=== PATIENT | female | born 1995 ===

== ENCOUNTER 2018-08-04 12:52 | Emergency (ER) | payer MEDICAID, OTHER ==
[2018-08-04 12:53] VITALS: BMI 34.9
[2018-08-04 12:58] VITALS: RESP 18; O2SAT 98
--- NOTE | 2018-08-04 13:32 | C.PDOC ---
History Of Present Illness 23yo female, history of gastritis, comes to ER with complaints of abdominal pain and diarrhea, which has been worsening over the past 3 weeks. Patient states her symptoms have been present for a "long time" but has worsened over the 3 weeks, prompting ER visit. She states in January 2018, she was visiting [place] and had similar symptoms there, was seen at a facility there and had an endoscopy after which she was diagnosed with gastritis. She was instructed to change her diet and take Nexium which she did with some relief. At present, patient states she has nausea and decreased PO intake as well. She denies any fever, chills, vomiting, black or bloody stools, dysuria, hematuria, and vaginal bleeding or discharge. Patient denies any recent antibiotics use as well. LNMP: 07/15/18 PMD: None GI: None Time Seen by Provider: 08/04/18 13:50 Chief Complaint (Nursing): Abdominal Pain History Per: Patient History/Exam Limitations: no limitations Onset/Duration Of Symptoms: Persistent, Worse Since (3 weeks) Current Symptoms Are (Timing): Still Present Location Of Pain/Discomfort: RLQ, Epigastric, LLQ, Suprapubic Quality Of Discomfort: "Pain" Associated Symptoms: Nausea, Diarrhea, Loss Of Appetite. denies: Fever, Chills , Vomiting Additional History Per: Patient Abnormal Vaginal Bleeding: No Last Menstral Period: 07/15/18 Past Medical History Reviewed: Historical Data, Nursing Documentation, Vital Signs Vital Signs: Last Vital Signs Temp 98.3 F 08/04/18 12:55 Pulse 78 08/04/18 12:55 Resp 18 08/04/18 12:55 BP 119/77 08/04/18 12:55 Pulse Ox 98 08/04/18 17:26 - Medical History PMH: Depression Denies: Diabetes, Hepatitis, HIV, HTN, Seizures, Sexually Transmitted Disease Surgical History: Endoscopy - [facility] Procedures INJECT/INFUSE NEC (10/31/14) Family History: States: No Known Family Hx - Social History Hx Alcohol Use: No Hx Substance Use: No - Immunization History Hx Tetanus Toxoid Vaccination: No Hx Influenza Vaccination: No Hx Pneumococcal Vaccination: No Review Of Systems Except As Marked, All Systems Reviewed And Found Negative. Constitutional: Negative for: Fever, Chills Cardiovascular: Negative for: Chest Pain Respiratory: Negative for: Shortness of Breath Gastrointestinal: Positive for: Nausea, Abdominal Pain, Diarrhea. Negative for : Vomiting, Melena, Hematochezia Genitourinary: Negative for: Dysuria, Frequency, Hematuria, Vaginal Discharge, Vaginal Bleeding Physical Exam - Physical Exam Appears: Non-toxic Skin: Normal Color, Warm Head: Atraumatic, Normacephalic Eye(s): bilateral: Normal Inspection Neck: Normal ROM, Supple Chest: Symmetrical Cardiovascular: Rhythm Regular Respiratory: Normal Breath Sounds Gastrointestinal/Abdominal: Soft, Tenderness (epigastric, suprapubic, bilateral lower quadrants), No Guarding, No Rebound Back: Normal Inspection, No CVA Tenderness Extremity: Normal ROM Neurological/Psych: Oriented x3 ED Course And Treatment - Laboratory Results Result Diagrams: 08/04/18 14:18 08/04/18 14:18 O2 Sat by Pulse Oximetry: 98 (RA) Pulse Ox Interpretation: Normal - CT Scan/US CT Abdomen/Pelvis Other Rad Studies (CT/US): Read By Radiologist, Radiology Report Reviewed CT/US Interpretation: FINDINGS: LOWER THORAX: Minimal thickening of the lateral portion of the right major fissure is noted inferiorly. No pleural pericardial effusion bilaterally. LIVER: Borderline diminished hepatic attenuation throughout the liver may indicate mild hepatic steatosis. No mass or intrahepatic biliary dilatation appreciated. GALLBLADDER AND BILE DUCTS: Gallbladder is largely contracted. No radiodense cholelithiasis in the lumen. PANCREAS: Unremarkable. No gross lesion or ductal dilatation. SPLEEN: Unremarkable. ADRENALS: Unremarkable. No mass. KIDNEYS AND URETERS: There is a 3.5 mm nonobstructing intrarenal calcified at the midpole left kidney with a small cortical infarct in the lateral mid pole left kidney as well. No obstructive uropathy bilaterally. Normal corticomedullary enhancement pattern exclusive of the medial infarct noted above. Ureters appear normal caliber bilaterally. VASCULATURE: Unremarkable. No aortic aneurysm. BOWEL: The stomach is unremarkable. There is no bowel obstruction identified involving small or large bowel loops. Occasional left colonic diverticular seen concentrated the distal left hemicolon without acute changes. APPENDIX: Normal appendix. PERITONEUM: Unremarkable. No free fluid. No free air. LYMPH NODES: Unremarkable. No enlarged lymph nodes. BLADDER: Decompressed urinary bladder. Limited evaluation. REPRODUCTIVE: Intrauterine device in situ at the endometrial cavity of the uterus. BONES: No acute fracture. OTHER FINDINGS: None. IMPRESSION: 1. A solitary 3.5 mm intrarenal calculus is nonobstructive at the left kidney. No hydronephrosis bilaterally or perinephric reaction. No delayed nephrogram bilaterally. Small left renal cortical infarct identified as per above. 2. Borderline hepatic steatosis. 3. Limited left colonic diverticular changes of, nonacute. 4. IUD in situ as per above. 5. Minimal thickening of the inferior margins right major fissure. Nonspecific finding. Follow-up CT may be performed electively. . Medical Decision Making Medical Decision Makin yr old female w/ hx of gastritis p/w abdominal pain, RLQ, LLQ, Suprapubic, epigastric and diarrhea. No vaginal d/c or complaints. No hx of STDS per pt, no rashes. No fever, chills or night sweats. Given RLQ pain will seek CT. ?IBD vs gastroenteritis given timeframe of previous travel. U/L SBO given able to defecate. U/L choley given no RUQ pain, no referred shoulder pain. Possible diverticulitis vs Appendicits given RLQ and LLQ pain warranting CT. 1432: labs reviewed, heme and UA: unremarkable. pending additional labs and imaging. 1607 Labs reviewed, unremarkable- pending CT abd pelvis 1725 On reassessment, patient remains without flank pain. 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 Tolerating clears, likely gastroenteritis. No indications of diverticulitis. Stable for d/c home. Disposition - Disposition Disposition Time: 17:40 Condition: GOOD Forms: [facility] (German) - Clinical Impression Clinical Impression: Gastroenteritis, Kidney infarction - Scribe Statement The provider has reviewed the documentation as recorded by the Abisai Bai Provider Attestation: All medical record entries made by the Abisai were at my direction and personally dictated by me. I have reviewed the chart and agree that the record accurately reflects my personal performance of the history, physical exam, medical decision making, and the department course for this patient. I have also personally directed, reviewed, and agree with the discharge instructions and disposition.
[2018-08-04 13:44] LABS: HCG,QUALITATIVE URINE NEGATIVE (NEGATIVE)
[2018-08-04 13:52] LABS: SQUAMOUS EPITHIAL 7 /hpf (0-5); URINE BILIRUBIN NEGATIVE (NEGATIVE); URINE BLOOD NEGATIVE (NEGATIVE); URINE CLARITY Clear (Clear); URINE COLOR Yellow (YELLOW); URINE GLUCOSE (UA) NORMAL (Normal); URINE LEUKOCYTE ESTERASE NEG Leu/uL (Negative); URINE PROTEIN NEGATIVE (NEGATIVE); URINE UROBILINOGEN NORMAL mg/dL (0.2-1.0)
[2018-08-04] MEDS ORDERED: Sodium Chloride 0.9% 1,000 ML IV ONE (13:56)
[2018-08-04 14:23] LABS: BASO # 0.1 K/uL (0.0-0.2); BASO % 0.7 % (0.0-2.0); EOS # 0.1 K/uL (0.0-0.7); EOS % 1.5 % (0.0-4.0); HEMOGLOBIN 12.3 g/dL (11.0-16.0); LYMPH # 2.5 K/uL (1.0-4.3); LYMPH % 28.2 % (20.0-40.0); MEAN CELL VOLUME 88.9 fL (81.0-99.0); MEAN CORPUSCULAR HEMOGLOBIN 31.1 pg (27.0-31.0); MEAN PLATELET VOLUME 7.9 fL (7.2-11.7); MONO # 0.3 K/uL (0.0-0.8); MONO % 3.6 % (0.0-10.0); NEUT # 5.8 K/uL (1.8-7.0); NRBC % 0.1 % (0.0-2.0); RBC 3.97 Mil/uL (3.80-5.20); RED CELL DISTRIBUTION WIDTH 12.6 % (11.5-14.5); WHITE BLOOD COUNT 8.8 K/uL (4.8-10.8)
[2018-08-04] MEDS ORDERED: Sodium Chloride 0.9% 1,000 ML ONE (14:38)
[2018-08-04 14:40] LABS: ALB/GLOB RATIO 1.3 (1.0-2.1); ALBUMIN 4.3 g/dL (3.5-5.0); ALT/SGPT 26 U/L (9-52); AST/SGOT 18 U/L (14-36); BLOOD UREA NITROGEN 12 mg/dL (7-17); CALCIUM 8.9 mg/dl (8.6-10.4); GFR NON-AFRICAN AMERICAN > 60; LIPASE 55 U/L (23-300)
[2018-08-04] MEDS ORDERED: Aluminum Hydroxide/Magnesium Hydroxide Susp (30 mL) PO ONE (15:30)
[2018-08-04] MEDS ORDERED: Iohexol 240 (50 ml) ONE (15:45)
[2018-08-04] MEDS ORDERED: Aluminum Hydroxide/Magnesium Hydroxide Susp (30 mL) ONE (15:45)
[2018-08-04] MEDS ORDERED: Iohexol 240 (50 ml) PO ONE (15:54)
[2018-08-04] MEDS ORDERED: Iohexol 300 100 ML IJ ONE (16:14)
--- NOTE | 2018-08-04 17:08 | CT ---
Date of service: 08/04/2018 PROCEDURE: CT Abdomen and Pelvis with contrast HISTORY: rlq, supra, llq, epigastric abd pain, hx of diarrh COMPARISON: None. TECHNIQUE: Following oral and intravenous contrast administration, a CT examination of the abdomen and pelvis performed from the domes of the diaphragms to the symphysis pubis with reformatted datasets provided not only axial but also sagittal and coronal series. Contrast dose: Omnipaque 300, 100 cc Radiation dose: Total exam DLP = 1244.86 mGy-cm. This CT exam was performed using one or more of the following dose reduction techniques: Automated exposure control, adjustment of the mA and/or kV according to patient size, and/or use of iterative reconstruction technique. FINDINGS: LOWER THORAX: Minimal thickening of the lateral portion of the right major fissure is noted inferiorly. No pleural pericardial effusion bilaterally. LIVER: Borderline diminished hepatic attenuation throughout the liver may indicate mild hepatic steatosis. No mass or intrahepatic biliary dilatation appreciated. GALLBLADDER AND BILE DUCTS: Gallbladder is largely contracted. No radiodense cholelithiasis in the lumen. PANCREAS: Unremarkable. No gross lesion or ductal dilatation. SPLEEN: Unremarkable. ADRENALS: Unremarkable. No mass. KIDNEYS AND URETERS: There is a 3.5 mm nonobstructing intrarenal calcified at the midpole left kidney with a small cortical infarct in the lateral mid pole left kidney as well. No obstructive uropathy bilaterally. Normal corticomedullary enhancement pattern exclusive of the medial infarct noted above. Ureters appear normal caliber bilaterally. VASCULATURE: Unremarkable. No aortic aneurysm. BOWEL: The stomach is unremarkable. There is no bowel obstruction identified involving small or large bowel loops. Occasional left colonic diverticular seen concentrated the distal left hemicolon without acute changes. APPENDIX: Normal appendix. PERITONEUM: Unremarkable. No free fluid. No free air. LYMPH NODES: Unremarkable. No enlarged lymph nodes. BLADDER: Decompressed urinary bladder. Limited evaluation. REPRODUCTIVE: Intrauterine device in situ at the endometrial cavity of the uterus. BONES: No acute fracture. OTHER FINDINGS: None. IMPRESSION: 1. A solitary 3.5 mm intrarenal calculus is nonobstructive at the left kidney. No hydronephrosis bilaterally or perinephric reaction. No delayed nephrogram bilaterally. Small left renal cortical infarct identified as per above. 2. Borderline hepatic steatosis. 3. Limited left colonic diverticular changes of, nonacute. 4. IUD in situ as per above. 5. Minimal thickening of the inferior margins right major fissure. Nonspecific finding. Follow-up CT may be performed electively. .
[2018-08-04 18:13] VITALS: BP 136/79; PULSE 69; TEMP 98
== END 2018-08-04 18:13 | disposition home or self-care (01) ==
LOC: C.ER 12:52
DX: K52.9 Noninfective gastroenteritis and colitis, unspecified (principal); N28.0 Ischemia and infarction of kidney
CPT/HCPCS: 74177; 80053; 81001; 83690; 84703; 85025; 96374; 96375; 99285; J2405; J7030; Q9966; Q9967

== ENCOUNTER 2018-08-07 17:01 | Inpatient (IN) | payer OTHER ==
[2018-08-07 17:01] VITALS: BMI 34.9
--- NOTE | 2018-08-07 17:35 | C.PDOC ---
History Of Present Illness 23 y/o female presents to ED with c/o abdominal pain intermittently for 3 weeks associated with diarrhea. Patient was seen at ED 3 days ago for same symptoms, had CT of abdomen and labs with negative findings. Patient returns to ED stating symptoms are unbearable at work, developed vomiting and noticed "blood in stool". Patient denies fever, chills, dysuria, back pain or any other complaints at this time. No recent travel, exotic or raw food. Time Seen by Provider: 08/07/18 17:33 Chief Complaint (Nursing): Abdominal Pain History Per: Patient History/Exam Limitations: no limitations Onset/Duration Of Symptoms: Days, Intermittent Episodes Current Symptoms Are (Timing): Still Present Location Of Pain/Discomfort: Suprapubic Radiation Of Pain To:: None Past Medical History Reviewed: Historical Data, Nursing Documentation, Vital Signs Vital Signs: Last Vital Signs Temp 98.0 F 08/08/18 15:40 Pulse 53 L 08/08/18 15:40 Resp 18 08/08/18 15:40 BP 105/57 L 08/08/18 15:40 Pulse Ox 99 08/08/18 20:47 - Medical History PMH: Depression ((pt denies)), Gastritis Surgical History: Endoscopy - [facility] Procedures INJECT/INFUSE NEC (10/31/14) Family History: States: No Known Family Hx - Social History Hx Alcohol Use: No Hx Substance Use: No - Immunization History Hx Tetanus Toxoid Vaccination: No Hx Influenza Vaccination: Yes Hx Pneumococcal Vaccination: No Review Of Systems Except As Marked, All Systems Reviewed And Found Negative. Constitutional: Negative for: Fever, Chills Gastrointestinal: Positive for: Vomiting, Abdominal Pain, Diarrhea, Hematochezia , Rectal Pain. Negative for: Hematemesis Genitourinary: Negative for: Dysuria Musculoskeletal: Negative for: Back Pain Physical Exam - Physical Exam Appears: Non-toxic, No Acute Distress Skin: Warm, Dry, No Rash Head: Atraumatic, Normacephalic Eye(s): bilateral: Normal Inspection Oral Mucosa: Moist Neck: Supple Cardiovascular: Rhythm Regular Respiratory: Normal Breath Sounds, No Rales, No Rhonchi, No Wheezing Gastrointestinal/Abdominal: Soft, Tenderness (suprapubic), No Guarding, No Rebound Back: No CVA Tenderness Neurological/Psych: Oriented x3, Normal Speech, Normal Cognition ED Course And Treatment - Laboratory Results Result Diagrams: 08/08/18 07:39 08/08/18 07:39 O2 Sat by Pulse Oximetry: 99 (RA) Pulse Ox Interpretation: Normal Medical Decision Making Medical Decision Makin yr old female here recently p/w abdominal pain, diarrhea exactly alike previous visit. NO RLQ or rebound tenderness on exam. No hx of STDS or abnl vaginal d/c. No recent abx. Previous CT negative. Plan: Blood work, UA, Trans vaginal US and Stool culture ordered. IV fluids administered. TVUS unremarkable, labs unremarkable. Recurrent nausea and vomiting on exam, admitted to Medicine Physician transportation escort- Dr. Mota Disposition - Disposition Disposition: HOME/ ROUTINE Disposition Time: 23:45 Condition: GOOD - Clinical Impression Clinical Impression: Abdominal pain, Vomiting - Scribe Statement The provider has reviewed the documentation as recorded by the Sheldonibkristan Jordan All medical record entries made by the Sheldonibkristan were at my direction and personally dictated by me. I have reviewed the chart and agree that the record accurately reflects my personal performance of the history, physical exam, medical decision making, and the department course for this patient. I have also personally directed, reviewed, and agree with the discharge instructions and disposition.
[2018-08-07] MEDS ORDERED: Sodium Chloride 0.9% 1,000 ML IV SCH (18:00)
[2018-08-07 18:37] LABS: HEMOGLOBIN 12.8 g/dL (11.0-16.0); MEAN CELL VOLUME 87.8 fL (81.0-99.0); MEAN CORPUSCULAR HEMOGLOBIN 30.9 pg (27.0-31.0); MEAN CORPUSCULAR HGB CONC 35.2 g/dL (33.0-37.0); MEAN PLATELET VOLUME 7.9 fL (7.2-11.7); RBC 4.15 Mil/uL (3.80-5.20); WHITE BLOOD COUNT 7.1 K/uL (4.8-10.8)
[2018-08-07 18:50] LABS: ALB/GLOB RATIO 1.5 (1.0-2.1); ALBUMIN 4.6 g/dL (3.5-5.0); ALT/SGPT 24 U/L (9-52); AST/SGOT 22 U/L (14-36); BLOOD UREA NITROGEN 12 mg/dL (7-17); CALCIUM 9.2 mg/dl (8.6-10.4); GFR NON-AFRICAN AMERICAN > 60; LIPASE 60 U/L (23-300)
[2018-08-07 19:07] LABS: VENOUS BLOOD GAS BASE EXCESS -11.8 mmol/L (0.0-2.0); VENOUS BLOOD GAS PCO2 23 mmHg (40-60); VENOUS BLOOD GAS PO2 44 mm/Hg (30-55); VENOUS BLOOD PH 7.33 (7.32-7.43)
[2018-08-07 20:07] LABS: SQUAMOUS EPITHIAL 2 /hpf (0-5); URINE BILIRUBIN NEGATIVE (NEGATIVE); URINE BLOOD 1+ (NEGATIVE); URINE CLARITY Clear (Clear); URINE COLOR Straw (YELLOW); URINE GLUCOSE (UA) NORMAL (Normal); URINE LEUKOCYTE ESTERASE NEG Leu/uL (Negative); URINE PROTEIN NEGATIVE (NEGATIVE); URINE UROBILINOGEN NORMAL mg/dL (0.2-1.0)
[2018-08-07] MEDS ORDERED: Morphine 4 MG/ML VIAL ONE (23:17)
[2018-08-08] MEDS ORDERED: Dextrose 5%/0.9% NS 1,000 ML IV ONE (01:16)
[2018-08-08] MEDS ORDERED: Ciprofloxacin 400mg/200ml D5W 400 MG/200 ML BAG IVPB STA (01:19)
[2018-08-08] MEDS: metroNIDAZOLE IV 500 mg/100 ml 500 MG/100 ML BAG IVPB SCH ×3 (01:56→17:19)
[2018-08-08 08:06] LABS: BASO % 0.6 % (0.0-2.0); EOS # 0.3 K/uL (0.0-0.7); EOS % 5.3 % (0.0-4.0); HEMOGLOBIN 11.9 g/dL (11.0-16.0); LYMPH # 1.5 K/uL (1.0-4.3); LYMPH % 29.7 % (20.0-40.0); MEAN CELL VOLUME 88.2 fL (81.0-99.0); MEAN CORPUSCULAR HEMOGLOBIN 31.7 pg (27.0-31.0); MEAN CORPUSCULAR HGB CONC 35.9 g/dL (33.0-37.0); MEAN PLATELET VOLUME 8.4 fL (7.2-11.7); MONO # 0.4 K/uL (0.0-0.8); MONO % 8.4 % (0.0-10.0); NEUT # 2.9 K/uL (1.8-7.0); NRBC % 0.2 % (0.0-2.0); RBC 3.75 Mil/uL (3.80-5.20); RED CELL DISTRIBUTION WIDTH 12.5 % (11.5-14.5); WHITE BLOOD COUNT 5.1 K/uL (4.8-10.8)
[2018-08-08 08:16] LABS: ALB/GLOB RATIO 1.4 (1.0-2.1); ALBUMIN 3.6 g/dL (3.5-5.0); ALT/SGPT 31 U/L (9-52); AST/SGOT 23 U/L (14-36); BLOOD UREA NITROGEN 10 mg/dL (7-17); CALCIUM 8.4 mg/dl (8.6-10.4); GFR NON-AFRICAN AMERICAN > 60
--- NOTE | 2018-08-08 09:27 | CP.PCM.CON ---
History of Present Illness - History of Present Illness History of Present Illness: Asked by Dr. Moy for a GI consultation on this patient. 23 year old female without significant past medical history who presents to hospital with complaint of progessive abdominal pain and diarrhea. She describes symptoms for the past 3 weeks with having intermittent diarrhea up to 3 episodes daily and left sided abdominal pain which radiates to b/l lower quadrants. She does note that her daughter had the flu/cough around the time when symptoms initially began. She recently also describes nausea and non-bloody emesis. She went to [place] in January 2018, had an EGD there which showed gastritis as per patient and she has been on PPI therapy since that time. She denies fever/ chills, weight loss, recent travel, or antibiotic use. She does report recent blood tinge stool. No prior colonoscopy. Social history: stopped smoking 1 month ago, social ETOH use Family history: reviewed, patient denies history of GI malignancy Review of Systems - Review of Systems Review of Systems: - All other comprehensive 12 point review of systems performed, negative - Constitutional Constitutional: Fatigue - Cardiovascular Cardiovascular: absent: Acrocyanosis, Chest Pain, Chest Pain at Rest, Chest Pain with Activity, Claudication, Diaphoresis, Dyspnea, Dyspnea on Exertion, Edema, Irregular Heart Rhythm, Pain Radiating to Arm/Neck/Jaw, Leg Edema, Leg Ulcers, Lightheadedness, Orthopnea, Palpitations, Paroxysmal Nocturnal Dyspnea, Pedal Edema, Radiating Pain, Rapid Heart Rate, Slow Heart Rate, Syncope, Other - Respiratory Respiratory: absent: Cough, Dyspnea, Hemoptysis, Dyspnea on Exertion, Wheezing, Snoring, Stridor, Pain on Inspiration, Chest Congestion, Excessive Mucous Production, Change in Mucous Color, Pain with Coughing, Other - Gastrointestinal Gastrointestinal: Abdominal Pain, Diarrhea, Nausea, Vomiting - Musculoskeletal Musculoskeletal: absent: Abnormal Gait, Arthralgias, Atrophy, Back Pain, Deformity, Joint Swelling, Limited Range of Motion, Loss of Height, Muscle Cramps, Muscle Weakness, Myalgias, Neck Pain, Numbness, Radiating Pain into Limb , Stiffness, Tingling, Other - Neurological Neurological: absent: Abnormal Gait, Abnormal Hearing, Abnormal Movements, Abnormal Speech, Behavioral Changes, Burning Sensations, Confusion, Convulsions , Disequilibrium, Dizziness, Numbness, Focal Weakness, Frequent Falls, Headaches , Lack of Coordination, Loss of Vision, Memory Loss, Paresthesias, Radicular Pain, Restless Legs, Sensory Deficit, Syncope, Tingling, Tremor, Vertigo, Weakness, Other Visual Disturbances, Other Past Patient History - Infectious Disease Hx of Infectious Diseases: None - Past Social History Smoking Status: Former Smoker - CARDIAC Hx Hypertension: No - PULMONARY Hx Tuberculosis: No - NEUROLOGICAL Hx Seizures: No - HEMATOLOGICAL/ONCOLOGICAL Hx Human Immunodeficiency Virus (HIV): No - GASTROINTESTINAL Hx Gastritis: Yes - GENITOURINARY/GYNECOLOGICAL Hx Sexually Transmitted Disorders: No - PSYCHIATRIC Hx Depression: Yes ((pt denies)) Hx Substance Use: No - SURGICAL HISTORY Hx Surgeries: Yes Hx Orthopedic Surgery: Yes (r ankle) Other/Comment: RIGHT ANKLE SURGERY (pt does not recall what the surgery was for) - ANESTHESIA Hx Anesthesia: Yes Hx Anesthesia Reactions: No Meds Allergies/Adverse Reactions: Allergies Allergy/AdvReac Type Severity Reaction Status Date / Time Penicillins AdvReac ANAPHYLAXIS Verified 08/07/18 17:19 - Medications Medications: Current Medications Dextrose/Sodium Chloride (Dextrose 5%/0.9% Ns 1000 Ml) 1,000 mls @ 100 mls/hr IV .Q10H ONE Stop: 08/08/18 11:15 Last Admin: 08/08/18 01:30 Dose: 100 mls/hr Metronidazole (Flagyl) 500 mg in 100 mls @ 100 mls/hr IVPB Q8H NIKO PRN Reason: Protocol Last Admin: 08/08/18 01:56 Dose: 100 mls/hr Physical Exam - Constitutional Appears: Non-toxic, No Acute Distress - Head Exam Head Exam: NORMAL INSPECTION - Eye Exam Eye Exam: EOMI, Normal appearance - ENT Exam ENT Exam: Mucous Membranes Moist - Respiratory Exam Respiratory Exam: Clear to Auscultation Bilateral - Cardiovascular Exam Cardiovascular Exam: REGULAR RHYTHM, +S1, +S2 - GI/Abdominal Exam GI & Abdominal Exam: Normal Bowel Sounds, Soft Additional comments: non tender to palpation in four quadrants no palpable hepato/splenomegaly - Extremities Exam Extremities exam: Positive for: normal inspection - Neurological Exam Neurological exam: Alert, CN II-XII Intact, Oriented x3, Reflexes Normal - Psychiatric Exam Psychiatric exam: Normal Affect, Normal Mood - Skin Skin Exam: Dry, Intact, Normal Color, Warm Results - Vital Signs Recent Vital Signs: Last Vital Signs Temp 98 F 09/08/18 08:20 Pulse 62 08/08/18 08:20 Resp 20 08/08/18 08:20 BP 105/58 L 08/08/18 08:20 Pulse Ox 96 08/08/18 08:20 - Labs Result Diagrams: 08/08/18 07:39 08/08/18 07:39 Labs: Laboratory Results - last 24 hr 08/07/18 08/07/18 08/07/18 15:32 18:31 18:31 WBC 7.1 RBC 4.15 Hgb 12.8 Hct 36.4 MCV 87.8 MCH 30.9 MCHC 35.2 RDW 13.0 Plt Count 295 MPV 7.9 Neut % (Auto) Lymph % (Auto) [place] % (Auto) Eos % (Auto) Baso % (Auto) Neut # (Auto) Lymph # (Auto) [place] # (Auto) Eos # (Auto) Baso # (Auto) pO2 VBG pH VBG pCO2 VBG HCO3 VBG Total CO2 VBG O2 Sat (Calc) VBG Base Excess VBG Potassium Glucose Lactate Crit Value Called To Crit Value Called By Crit Value Read Back Blood Gas Notified Time Sodium 142 Potassium 3.7 Chloride 104 Carbon Dioxide 25 Anion Gap 17 BUN 12 Creatinine 0.7 Est GFR ( Amer) > 60 Est GFR (Non-Af Amer) > 60 Random Glucose 93 Calcium 9.2 Phosphorus Magnesium 1.7 Total Bilirubin 0.8 AST 22 ALT 24 Alkaline Phosphatase 71 Total Protein 7.6 Albumin 4.6 Globulin 3.1 Albumin/Globulin Ratio 1.5 Lipase 60 Venous Blood Potassium Urine Color Urine Clarity Urine pH Ur Specific [place] Urine Protein Urine Glucose (UA) Urine Ketones Urine Blood Urine Nitrate Urine Bilirubin Urine Urobilinogen Ur Leukocyte Esterase Urine WBC (Auto) Urine RBC (Auto) Ur Squamous Epith Cells Urine HCG, Qual Stool Occult Blood C. difficile Ag & Toxin Negative 08/07/18 08/07/18 08/07/18 18:59 19:58 19:59 WBC RBC Hgb Hct MCV MCH MCHC RDW Plt Count MPV Neut % (Auto) Lymph % (Auto) [place] % (Auto) Eos % (Auto) Baso % (Auto) Neut # (Auto) Lymph # (Auto) [place] # (Auto) Eos # (Auto) Baso # (Auto) pO2 44 VBG pH 7.33 VBG pCO2 23 L VBG HCO3 15.1 VBG Total CO2 12.8 L VBG O2 Sat (Calc) 82.6 H VBG Base Excess -11.8 L VBG Potassium 1.4 L* Glucose 42 L Lactate 0.5 L Crit Value Called To Chana cook rn Crit Value Called By Sarah Crit Value Read Back Y Blood Gas Notified Time 1906 Sodium 152.0 H Potassium Chloride 125.0 H Carbon Dioxide Anion Gap BUN Creatinine Est GFR ( Amer) Est GFR (Non-Af Amer) Random Glucose Calcium Phosphorus Magnesium Total Bilirubin AST ALT Alkaline Phosphatase Total Protein Albumin Globulin Albumin/Globulin Ratio Lipase Venous Blood Potassium 1.4 L* Urine Color Straw Urine Clarity Clear Urine pH 6.0 Ur Specific [place] 1.009 Urine Protein Negative Urine Glucose (UA) Normal Urine Ketones Negative Urine Blood 1+ H Urine Nitrate Negative Urine Bilirubin Negative Urine Urobilinogen Normal Ur Leukocyte Esterase Neg Urine WBC (Auto) < 1 Urine RBC (Auto) 4 H Ur Squamous Epith Cells 2 Urine HCG, Qual Negative Stool Occult Blood C. difficile Ag & Toxin 08/08/18 08/08/18 08/08/18 00:16 07:39 07:39 WBC 5.1 RBC 3.75 L Hgb 11.9 Hct 33.1 L MCV 88.2 MCH 31.7 H MCHC 35.9 RDW 12.5 Plt Count 262 MPV 8.4 Neut % (Auto) 56.0 Lymph % (Auto) 29.7 [place] % (Auto) 8.4 Eos % (Auto) 5.3 H Baso % (Auto) 0.6 Neut # (Auto) 2.9 Lymph # (Auto) 1.5 [place] # (Auto) 0.4 Eos # (Auto) 0.3 Baso # (Auto) 0.0 pO2 VBG pH VBG pCO2 VBG HCO3 VBG Total CO2 VBG O2 Sat (Calc) VBG Base Excess VBG Potassium Glucose Lactate Crit Value Called To Crit Value Called By Crit Value Read Back Blood Gas Notified Time Sodium 138 Potassium 3.4 L Chloride 104 Carbon Dioxide 25 Anion Gap 13 BUN 10 Creatinine 0.6 L Est GFR ( Amer) > 60 Est GFR (Non-Af Amer) > 60 Random Glucose 95 Calcium 8.4 L Phosphorus 3.7 Magnesium 1.7 Total Bilirubin 0.3 AST 23 ALT 31 Alkaline Phosphatase 55 Total Protein 6.2 L Albumin 3.6 Globulin 2.6 Albumin/Globulin Ratio 1.4 Lipase Venous Blood Potassium Urine Color Urine Clarity Urine pH Ur Specific [place] Urine Protein Urine Glucose (UA) Urine Ketones Urine Blood Urine Nitrate Urine Bilirubin Urine Urobilinogen Ur Leukocyte Esterase Urine WBC (Auto) Urine RBC (Auto) Ur Squamous Epith Cells Urine HCG, Qual Stool Occult Blood Positive H C. difficile Ag & Toxin Assessment & Plan - Assessment and Plan (Free Text) Assessment: Abdominal pain, nausea, vomiting, diarrhea CT imaging reviewed by me showing L sided nephrolithiasis Plan: - Liquid diet as tolerated - Continue with antibiotic therapy as per medical team - May consider urology evaluation if symptoms persist - Obtain stool studies, c-difficile negative - Anti-emetic therapy PRN - Will continue to monitor patient clinical course
--- NOTE | 2018-08-08 09:51 | CP.PCM.PN ---
Subjective - Date & Time of Evaluation Date of Evaluation: 08/08/18 Time of Evaluation: 09:51 - Subjective Subjective: H&P dictated #[id number] Objective - Vital Signs/Intake and Output Vital Signs (last 24 hours): Temp Pulse Resp BP Pulse Ox 98 F 62 20 105/58 L 96 08/08/18 08:20 08/08/18 08:20 08/08/18 08:20 08/08/18 08:20 08/08/18 08:20 Intake and Output: 08/08/18 08/08/18 06:59 18:59 Intake Total 800 Balance 800 - Medications Medications: Current Medications Dextrose/Sodium Chloride (Dextrose 5%/0.9% Ns 1000 Ml) 1,000 mls @ 100 mls/hr IV .Q10H ONE Stop: 08/08/18 11:15 Last Admin: 08/08/18 01:30 Dose: 100 mls/hr Metronidazole (Flagyl) 500 mg in 100 mls @ 100 mls/hr IVPB Q8H NIKO PRN Reason: Protocol Last Admin: 08/08/18 09:34 Dose: 100 mls/hr Ciprofloxacin (Cipro 400mg/200ml Dsw) 400 mg in 200 mls @ 133 mls/hr IVPB Q12H NIKO PRN Reason: Protocol - Labs Labs: 08/08/18 07:39 08/08/18 07:39
[2018-08-08] MEDS ORDERED: Potassium Chloride 20 mEq ER Tab PO ONE (11:00)
[2018-08-08] MEDS: Ciprofloxacin 400mg/200ml D5W 400 MG/200 ML BAG IVPB SCH ×2 (11:33→22:17)
--- NOTE | 2018-08-08 13:07 | US ---
Pelvic ultrasound History: Pelvic pain. Comparison: None available. Technique: Real-time sonography was performed through the pelvis utilizing transabdominal and transvaginal techniques. Findings: Uterus: 7.9 x 4.3 x 4.8 centimeters. Retroverted. Endometrium measures 6.8 millimeters. IUD seen in the endometrial canal. Moderate amount of free fluid in the pelvic cul-de-sac. Right ovary: 3.8 x 3.5 x 3.0 centimeters. Normal flow. Small follicles. Left ovary: 2.9 x 2.1 x 2.0 centimeters. Normal flow. Small follicles. Impression: Intrauterine device in the endometrial canal. Moderate free fluid in the pelvic cul-de-sac. Bilateral ovarian follicles. These findings were preliminarily reported at 7:31 p.m. on 08/07/[address] Ruel Mendez from [facility].
--- NOTE | 2018-08-08 17:00 | US ---
Renal ultrasound History: Renal calculus. Comparison: CT dated 08/04/2018 Technique: Real-time sonography was performed through the kidneys. Findings: Right kidney: 10.6 x 4.7 x 5.7 centimeters. No calculi or hydronephrosis. Left Kidney: 11.3 x 5.2 x 4.8 centimeters. Midpole echogenic calculus measuring 4 millimeters. No gross hydronephrosis. Limited visualization of the urinary bladder appears grossly preserved. Visualized aorta is grossly preserved. Impression: 4 millimeter echogenic calculus in the midpole of the left kidney.
[2018-08-09] MEDS: metroNIDAZOLE IV 500 mg/100 ml 500 MG/100 ML BAG IVPB SCH ×3 (01:21→18:15)
[2018-08-09 01:39] VITALS: RESP 20
--- NOTE | 2018-08-09 01:40 | HP ---
CHIEF COMPLAINT: Intractable nausea, vomiting, and diarrhea, worse from yesterday morning. HISTORY OF PRESENT ILLNESS: Mr. Seth is a 23-year-old female with no significant past medical history, came into the ED with complaints of progressively worsening lower abdominal pain associated with nausea, vomiting, and diarrhea with chest pain going on over the past 3 weeks. Yesterday, her symptoms got so worse and had multiple episodes of vomiting, which made her come to the emergency room. As per the patient, pain is in the lower abdomen 05/10, gets worse with eating. As soon as she eats, she feels nauseous and she has to go to the bathroom. She usually has 3 to 4 watery bowel movements, but lately for the past 3 days they were like blackish and mucus was seen in the watery bowel movements. Abdominal pain is persistent, but during the episodes of diarrhea it gets worse, but then gets back to the baseline. She claims that in 01/2018, the patient had similar symptoms and the patient's boyfriend took her to where she had an endoscopy done by the healthcare associate and it was diagnosed as gastritis as per the patient and has been taking medications since then. She denies any fever, cold, cough, sore throat. Denies any headache, denies any dizziness. She denies eating any outside food recently. Denies any use of antibiotics in the recent weeks. Denies any other urinary complaints, any other neurologic symptoms. PAST MEDICAL HISTORY: Denies any past medical history. PAST SURGICAL HISTORY: Underwent ankle surgery many years ago. FAMILY HISTORY: Coronary artery disease and pacemaker placement in mother, both father and mother have history of diverticulitis. SOCIAL HISTORY: Denies smoking, alcohol, or drug abuse. PERSONAL HISTORY: She is single, having one child, living with her mother, working at a [employer]. ALLERGIES: SHE IS ALLERGIC TO PENICILLIN, DEVELOPS ANAPHYLAXIS. MEDICATIONS AT HOME: Include Nexium and Bentyl. REVIEW OF SYSTEMS: As described in the history of present illness. All other systems reviewed and were found to be negative. PHYSICAL EXAMINATION: GENERAL: A young female, lying in bed, in no acute distress. VITAL SIGNS: Blood pressure 101/64, pulse 75, respirations 20, temperature 98.3 degree Fahrenheit, O2 saturations 96% on room air. HEENT: Pupils equal, round, and reacting to light and accommodation. Extraocular muscles intact. No icterus. No pallor. No oral thrush. No pharyngeal congestion. NECK: Supple. No JVD. LUNGS: Bilateral vesicular breath sounds. No wheezing. No rhonchi. CVS: S1, S2 present, regular. ABDOMEN: Soft. Bowel sounds present. No guarding. No rigidity. No rebound tenderness noted. AUTOMOTIVE MANAGER: Alert, awake, and oriented x3. No focal deficits noted. EXTREMITIES: No edema. Palpable peripheral pulses. LABORATORY DATA: Labs are done from ED. WBC 7.1, hemoglobin 12.8, hematocrit 36.4, platelets 295. Sodium 142, potassium 3.7, chloride 104, bicarb 25, BUN 12, creatinine 0.7, glucose 93, calcium 9.2, magnesium 1.7, total bilirubin 0.8, AST 22, ALT 24, alkaline phosphatase 71, total protein 7.6, albumin 4.6, lipase 60. UA: Specific gravity 1.009, pH 6, blood 1+, rbc 4, stool occult blood positive, beta hCG negative, C. diff negative. Ultrasound of the abdomen: intrauterine device in the endometrial canal. ASSESSMENT AND PLAN: A young female with no significant past medical history, admitted for lower abdominal pain associated with nausea, vomiting, and diarrhea. The patient was seen in the emergency department on 08/04/2018, at which time the patient underwent CT scan of the abdomen. It shows a 3.5 mm intrarenal calculus which is nonobstructive at the left kidney. No hydronephrosis bilaterally or perinephric reaction. No delayed nephrogram bilaterally, small left renal cortical infract identified, borderline hepatic steatosis, limited left colonic diverticular changes, intrauterine device in situ, minimal thickening of the inferior margins, right major fissure. 1. Lower abdominal pain associated with nausea, vomiting, and diarrhea, rule out infectious etiology versus inflammatory causes. 2. Renal calculus, nonobstructive. Mild hypokalemia. PLAN: We will keep the patient n.p.o. Give IV fluids. Check stool for ova and parasites, stool culture. Stool for C. diff is negative. GI consult appreciated. We will continue with Flagyl 500 mg IV every 8 hours and ciprofloxacin 400 mg IV every 12 hours. Pending the culture results, I will give Zofran as needed for vomiting. We will repeat renal ultrasound for evaluation of the renal stone. We will add further recommendations as her clinical course progresses. Vita Moy MD
--- NOTE | 2018-08-09 07:43 | CP.PCM.PN ---
Subjective - Date & Time of Evaluation Date of Evaluation: 08/09/18 Time of Evaluation: 07:40 - Subjective Subjective: Patient seen and examined, resting in bed comfortably. No acute events or bowel movements overnight. One episode of vomiting noted yesterday, however patient hungry and requesting her diet to be advanced. She denies abdominal pain, fever/chills. 1 episode of diarrhea last evening. 12 point review of systems performed, negative aside from mentioned above. Objective - Vital Signs/Intake and Output Vital Signs (last 24 hours): Temp Pulse Resp BP Pulse Ox 98.2 F 54 L 20 103/57 L 97 08/08/18 23:30 08/08/18 23:30 08/08/18 23:30 08/08/18 23:30 08/08/18 23:30 - Medications Medications: Current Medications Acetaminophen (Tylenol 325mg Tab) 650 mg PO Q6 PRN PRN Reason: Pain, moderate (4-7) Last Admin: 08/08/18 12:22 Dose: 650 mg Metronidazole (Flagyl) 500 mg in 100 mls @ 100 mls/hr IVPB Q8H NIKO PRN Reason: Protocol Last Admin: 08/09/18 01:21 Dose: 100 mls/hr Ciprofloxacin (Cipro 400mg/200ml Dsw) 400 mg in 200 mls @ 133 mls/hr IVPB Q12H NIKO PRN Reason: Protocol Last Admin: 08/08/18 22:17 Dose: 133 mls/hr Ondansetron HCl (Zofran Inj) 4 mg IVP Q6H PRN PRN Reason: Nausea/Vomiting Last Admin: 08/08/18 13:08 Dose: 4 mg - Labs Labs: 08/08/18 07:39 08/08/18 07:39 - Constitutional Appears: Non-toxic, No Acute Distress - Head Exam Head Exam: NORMAL INSPECTION - Eye Exam Eye Exam: EOMI, Normal appearance - ENT Exam ENT Exam: Mucous Membranes Moist - Respiratory Exam Respiratory Exam: Clear to Ausculation Bilateral - Cardiovascular Exam Cardiovascular Exam: +S1, +S2 - GI/Abdominal Exam GI & Abdominal Exam: Soft, Normal Bowel Sounds Additional comments: non tender to palpation in four quadrants - Extremities Exam Extremities Exam: Normal Inspection - Skin Skin Exam: Dry, Intact, Normal Color, Warm Assessment and Plan - Assessment and Plan (Free Text) Assessment: Anxiety Abdominal pain - nephrolithiasis Nausea, vomiting, diarrhea - chronic, etiology unclear Plan: - Advance diet as tolerated - May continue with antibiotic therapy to complete 5 day course - Awaiting results of stool studies, c-difficile negative - Patient would benefit from additional outpatient GI evaluation following hospital discharge. No further planned intervention, will sign off case. Please reconsult as necessary, thank you.
[2018-08-09] MEDS: Ciprofloxacin 400mg/200ml D5W 400 MG/200 ML BAG IVPB SCH (11:15)
--- NOTE | 2018-08-09 12:28 | CP.PCM.PN ---
Subjective - Date & Time of Evaluation Date of Evaluation: 08/09/18 Time of Evaluation: 12:28 - Subjective Subjective: Discharge summary dictated #[id number] Objective - Vital Signs/Intake and Output Vital Signs (last 24 hours): Temp Pulse Resp BP Pulse Ox 98.0 F 63 20 102/56 L 96 08/09/18 08:38 08/09/18 08:38 08/09/18 08:38 08/09/18 08:38 08/09/18 08:38 - Medications Medications: Current Medications Acetaminophen (Tylenol 325mg Tab) 650 mg PO Q6 PRN PRN Reason: Pain, moderate (4-7) Last Admin: 08/08/18 12:22 Dose: 650 mg Metronidazole (Flagyl) 500 mg in 100 mls @ 100 mls/hr IVPB Q8H NIKO PRN Reason: Protocol Last Admin: 08/09/18 09:13 Dose: 100 mls/hr Ciprofloxacin (Cipro 400mg/200ml Dsw) 400 mg in 200 mls @ 133 mls/hr IVPB Q12H NIKO PRN Reason: Protocol Last Admin: 08/09/18 11:15 Dose: 133 mls/hr Ondansetron HCl (Zofran Inj) 4 mg IVP Q6H PRN PRN Reason: Nausea/Vomiting Last Admin: 08/08/18 13:08 Dose: 4 mg - Labs Labs: 08/08/18 07:39 08/08/18 07:39
[2018-08-09 16:21] VITALS: BP 116/77; PULSE 72; TEMP 98.5; O2SAT 98
--- NOTE | 2018-08-10 19:59 | DS ---
DISCHARGE DIAGNOSES: Abdominal pain with intractable nausea and vomiting resolved, diarrhea improving, nephrolithiasis, abnormal CT abdomen. HISTORY OF PRESENT ILLNESS: Ms. Seth is a 23-year-old female with no significant past medical history other than recently diagnosed gastritis about six months ago in [place], where she underwent endoscopy, came into the ED, who had prior visits to ED for persistent nausea, vomiting, and diarrhea for the past three weeks. On the day of admission, the patient had intractable vomiting despite multiple anti-emetic medications, the patient was admitted for further management. Today, the patient is feeling much better. Denies any headache or dizziness. Denies any chest pain, shortness of breath, or wheezing. Denies any nausea, vomiting, abdominal pain, diarrhea, or constipation. Her stool has been more formed and more solid than yesterday as per the patient. Denies any urinary complaints. Denies any leg pains or leg cramps. Denies any other neurologic symptoms. All other systems reviewed and were found to be negative. PHYSICAL EXAMINATION: GENERAL: A young female, lying in bed, in no acute distress. VITAL SIGNS: Blood pressure 116/77, pulse 72, respirations 20, temperature 98.5 degrees Fahrenheit, O2 sat 98% on room air. HEENT: Pupils equal, round, and reacting to light and accommodation. Extraocular muscles intact. No icterus. No pallor. No oral thrush. No pharyngeal congestion. NECK: Supple. No JVD. LUNGS: Bilateral vesicular breath sounds. No wheezing. No rhonchi. CVS: S1, S2 present, regular. ABDOMEN: Soft, nontender. Bowel sounds present. No guarding. No rigidity. No rebound tenderness noted. PROGRAMMER ANALYST: Alert, awake, and oriented x3. No focal deficits noted. EXTREMITIES: No edema. Palpable peripheral pulses. LABORATORY DATA: Stool culture is negative for Salmonella, Shigella, or Campylobacter. Stool for ova and parasites negative. Leukocytes negative. Occult blood positive. Beta hCG negative. UA negative. Sodium 138, potassium 3.4, chloride 104, bicarb 25, BUN 10, creatinine 0.6, glucose 95, calcium 8.4, phosphorus 3.7, magnesium 1.7. Total bilirubin 0.3, AST 23, ALT 31, alkaline phosphatase 55, total protein 6.2, albumin 3.6. WBC 5.1, hemoglobin 11.9, hematocrit 33.1, and platelets 262. Her renal ultrasound consistent with 4 mm echogenic calculus in the mid pole of the left kidney. Transvaginal abdomen and pelvis ultrasound: Intrauterine device in the endometrial canal, moderate free fluid in the pelvic cul-de-sac, bilateral ovarian follicles. CT of the abdomen and pelvis done on 08/04/2018, consistent with solitary 3.5 mm intrarenal calculus, non-obstructing, no hydronephrosis, borderline hepatic steatosis, IUD in place. HOSPITAL COURSE: The patient was admitted to the hospital. The patient was kept n.p.o., started on IV antibiotics with Cipro and Flagyl, started on IV fluids. The patient was evaluated by GI. Recommended to continue with current antibiotics. All the stool work is negative. The patient wanted to try clear liquids. Initially, the patient developed vomiting again and the patient was kept n.p.o. As the patient was feeling hungry, restarted with clear liquids last night, the patient tolerated, this morning tolerated regular diet and is feeling much better and her diarrhea improved. The patient is anxious to be discharged, claiming the patient has scheduled appointment with Urology, GI, and her primary care doctor as scheduled recently from ER visit. As the patient is otherwise feeling much better and cleared by GI, the patient is being discharged. I advised the patient to follow up with all the consultants as scheduled. Advised to return to the ED if any worsening diarrhea or any other symptoms reoccur. CONDITION UPON DISCHARGE: The patient is alert, awake, oriented x3, and hemodynamically stable at the time of discharge. DISCHARGE INSTRUCTIONS: Follow up with PMD, Dr. De La Rosa as scheduled on 09/01/2018 at 3 p.m. and follow up with GI, Dr. Prakash as scheduled on 08/26/2018 at 2:15 p.m. Follow up with Urology, Dr. Green as scheduled on 08/11/2018. These schedules were made through services from [facility] with the patient. As the patient has all the scheduled appointments, the patient is being discharged. DISCHARGE MEDICATIONS: Ciprofloxacin 500 mg p.o. b.i.d. for another three days, Flagyl 500 mg p.o. every 8 hours for another three days, Bacid one cap p.o. b.i.d. for another three days. Please also refer to discharge instruction sheet given to the patient at the time of discharge. Vita Moy MD
== END 2018-08-09 18:38 | disposition home or self-care (01) | DRG 297 ==
LOC: C.ER 17:01 → C.5S 23:43 → OBSVTOIN 08-09 12:29
PROVIDERS: ADMIT Internal Medicine; ATTEND Internal Medicine
DX: E87.6 Hypokalemia (principal); N20.0 Calculus of kidney; F41.9 Anxiety disorder, unspecified; K29.70 Gastritis, unspecified, without bleeding; Z82.49 Family history of ischemic heart disease and other diseases of the circulatory system; Z87.891 Personal history of nicotine dependence